=== PATIENT | female | born 1985 | race Two or more races ===

== ENCOUNTER → 2020-03-22 10:34 | Outpatient (CLI) | payer OTHER | END | disposition home or self-care (01) | LOC: LAB 10:34 | DX: D64.89 Other specified anemias (principal); E78.49 Other hyperlipidemia; J18.8 Other pneumonia, unspecified organism; E06.5 Other chronic thyroiditis; N91.3 Primary oligomenorrhea ==

== ENCOUNTER 2020-03-22 11:51 | Outpatient (CLI) | payer OTHER | END 2020-03-22 12:01 | disposition home or self-care (01) | LOC: SONOGRAMA 11:51 → MAMO-SONO 13:45 | DX: R10.2 Pelvic and perineal pain (principal) ==